=== PATIENT | female | born 1990 | race Caucasian/White ===

== ENCOUNTER 2017-12-13 23:51 | Observation (INO) | payer OTHER ==
[~2017-12-13] VITALS: Ht 167.6 cm; Wt 81.8 kg
[2017-12-13 23:53] VITALS: Ht 167.6 cm; Wt 81.8 kg
[2017-12-14 00:47] LABS: BASOPHIL % 0.4 % (0-2); RED CELL DISTRIBUTION WIDTH 14.4 % (11.5-14.5)
[2017-12-14 00:55] LABS: CALCIUM 9.2 mg/dL (8.5-10.1); CARBON DIOXIDE 23.8 mmol/L (21-32); CHLORIDE SERUM 104 mmol/L (98-107); CREATININE SERUM 0.6 mg/dL (0.6-1.0); GFR1 > 60 mL/min; GLUCOSE SERUM 114 mg/dL (74-106); POTASSIUM SERUM 3.5 mmol/L (3.5-5.1); SODIUM SERUM 139 mmol/L (136-145)
[2017-12-14 01:00] LABS: ALBUMIN 4.1 g/dL (3.4-5.0); ALKALINE PHOSPHATASE 83 U/L (46-116); ALT/SGPT 23 U/L (14-59); AST/SGOT 17 U/L (15-37); BILIRUBIN TOTAL 0.24 mg/dL (0.20-1.00)
[2017-12-14 01:01] LABS: TOTAL PROTEIN, SERUM 8.3 g/dL (6.4-8.2)
[2017-12-14 01:02] LABS: PLATELET COUNT 480 x10^3mcL (130-400)
[2017-12-14 05:03] VITALS: BP 128/75
[2017-12-14 08:44] LABS: BASOPHIL % 0.3 % (0-2); RED CELL DISTRIBUTION WIDTH 14.3 % (11.5-14.5)
[2017-12-14 09:04] VITALS: BP 108/55
[2017-12-14 09:08] LABS: ALBUMIN 3.8 g/dL (3.4-5.0); ALKALINE PHOSPHATASE 79 U/L (46-116); ALT/SGPT 19 U/L (14-59); AST/SGOT 14 U/L (15-37); BILIRUBIN TOTAL 0.2 mg/dL (0.20-1.00); CALCIUM 8.9 mg/dL (8.5-10.1); CARBON DIOXIDE 23.4 mmol/L (21-32); CHLORIDE SERUM 102 mmol/L (98-107); CHOLESTEROL 156 mg/dL (<200); CHOLESTEROL/HDL RATIO 3.7; CREATININE SERUM 0.5 mg/dL (0.6-1.0); GFR1 > 60 mL/min; GLUCOSE SERUM 90 mg/dL (74-106); HDL CHOLESTEROL 42 mg/dL (40-60); POTASSIUM SERUM 3.5 mmol/L (3.5-5.1); SODIUM SERUM 139 mmol/L (136-145); TOTAL PROTEIN, SERUM 7.8 g/dL (6.4-8.2); TRIGLYCERIDES 47 mg/dL (<150)
[2017-12-14 09:19] VITALS: BP 108/55
[2017-12-14 09:21] LABS: PLATELET COUNT 436 x10^3mcL (130-400)
== END 2017-12-14 10:20 | disposition home or self-care (01) | DRG 880 ==
LOC: ED 23:51 → DU 12-14 03:30
PROVIDERS: Emergency Medicine; Internal Medicine
DX: F41.9 Anxiety disorder, unspecified (principal); F12.129 Cannabis abuse with intoxication, unspecified; Z68.31 Body mass index [BMI] 31.0-31.9, adult
CPT/HCPCS: 83880; 85378; G0378; J1650; J2060; J7030; Q0092